=== PATIENT | female | born 2000 | race Caucasian/White ===

== ENCOUNTER 2022-03-12 22:16 | Emergency (ER) | payer OTHER, BC ==
[~2022-03-12] VITALS: Ht 170.2 cm; Wt 63.6 kg
[2022-03-12 22:36] VITALS: BP 102/56
--- NOTE | 2022-03-12 22:43 | NUR ---
PT TO LOBBY.
--- NOTE | 2022-03-12 23:46 | NUR ---
CALLED IN LOBBY AND OUTSIDE FOR BED, NO RESPONSE
== END 2022-03-13 01:15 | disposition left against medical advice (07) ==
LOC: MED 22:16
DX: L50.0 Allergic urticaria (principal); Z53.21 Procedure and treatment not carried out due to patient leaving prior to being seen by health care provider